=== PATIENT | female | born 1965 | race Caucasian/White ===

== ENCOUNTER 2019-02-09 18:42 | Emergency (ER) | payer MEDICAID ==
[~2019-02-09] VITALS: Ht 160 cm; Wt 64.0 kg
[2019-02-09 19:11] VITALS: BP 124/76
--- NOTE | 2019-02-09 19:34 | NUR ---
Pt resting in bed awaiting to be seen by
--- NOTE | 2019-02-09 20:55 | NUR ---
CALLED HOUSE SUP FOR POST OP SHOE
--- NOTE | 2019-02-09 21:26 | NUR ---
PT TO BE DISCHARGED TO HOME,X RAY DONE, BOOTS GIVEN TO STABILIZE R FOOT, PRESCRIPTION GIVEN FOR PAIN MEDS. ALL ORDERS COMPLEATED. PT VERABLIZED UNDERSTANDING OF ALL D/C TEACHING AND INSTUCTIONS.
== END 2019-02-09 23:35 | disposition home or self-care (01) ==
LOC: ER 18:47
DX: M79.671 Pain in right foot (principal); M19.90 Unspecified osteoarthritis, unspecified site; E78.00 Pure hypercholesterolemia, unspecified; Z90.89 Acquired absence of other organs
CPT/HCPCS: 73630-TC

== ENCOUNTER 2021-05-19 18:02 | Emergency (ER) | payer MEDICAID ==
[~2021-05-19] VITALS: Ht 162.6 cm; Wt 68.9 kg
[2021-05-19 18:19] VITALS: BP 127/73
[2021-05-19] MEDS ORDERED: NAPR-1009 PO (20:19)
--- NOTE | 2021-05-19 20:32 | NUR ---
Patient discharged to home in stable condition. RX Written and verbal after care instructions given. Patient verbalizes understanding of instruction. PT ambulatory with a steady gait
== END 2021-05-19 21:14 | disposition home or self-care (01) ==
LOC: ER 18:05
DX: M25.562 Pain in left knee (principal); M25.552 Pain in left hip; M54.9 Dorsalgia, unspecified
CPT/HCPCS: 72131-TC; 73502; 73564-TC

== ENCOUNTER 2021-09-15 16:04 | Emergency (ER) | payer MEDICAID ==
[~2021-09-15] VITALS: Ht 162.6 cm; Wt 70.3 kg
[~2021-09-15 16:04] MED LIST: NAPR-1009 PO
[2021-09-15 16:25] VITALS: BP 117/74
[2021-09-15] MEDS ORDERED: TRAM50TA2 PO (17:59)
[2021-09-15] MEDS ORDERED: DICL75TA5 PO (17:59)
== END 2021-09-15 23:00 | disposition home or self-care (01) ==
LOC: ER 16:25
DX: Z53.21 Procedure and treatment not carried out due to patient leaving prior to being seen by health care provider (principal); M25.531 Pain in right wrist; E78.00 Pure hypercholesterolemia, unspecified; Z90.89 Acquired absence of other organs

== ENCOUNTER 2021-09-15 16:12 | Emergency (ER) | payer MEDICAID ==
[~2021-09-15] VITALS: Ht 162.6 cm; Wt 70.3 kg
[2021-09-15 16:31] VITALS: BP 117/74
--- NOTE | 2021-09-15 16:42 | NUR ---
BIBS FOR C/O RIGHT WRIST PAIN 10/05 X 2 DAYS,DENIES ANY TRAUMA. WILL CONTINUE TO MONITOR THE PATIENT.
[2021-09-15] MEDS ORDERED: KETOROLAC TROMETHAMINE INJ 60 MG/2 ML VIAL IM ONE (17:30)
[2021-09-15] MEDS ORDERED: DICL75TA5 PO (17:59)
[2021-09-15] MEDS ORDERED: KETOROLAC TROMETHAMINE INJ 30 MG/ML VIAL ONE (17:59)
[2021-09-15] MEDS ORDERED: TRAM50TA2 PO (17:59)
--- NOTE | 2021-09-15 18:12 | NUR ---
Patient discharged to home in stable condition. Written and verbal after care instructions given. Patient verbalizes understanding of instruction.
== END 2021-09-15 18:13 | disposition home or self-care (01) ==
LOC: ER 16:23
DX: G89.29 Other chronic pain (principal); M25.562 Pain in left knee; M25.531 Pain in right wrist; M25.59 Pain in other specified joint; E78.5 Hyperlipidemia, unspecified; M19.90 Unspecified osteoarthritis, unspecified site; E78.00 Pure hypercholesterolemia, unspecified; Z90.89 Acquired absence of other organs; Z90.49 Acquired absence of other specified parts of digestive tract; Z79.1 Long term (current) use of non-steroidal anti-inflammatories (NSAID)
CPT/HCPCS: 29125; 73110; 96372; 99283; J1885

== ENCOUNTER 2023-10-27 18:07 | Emergency (ER) | payer MEDICAID ==
[~2023-10-27] VITALS: Ht 160 cm; Wt 72.6 kg
[~2023-10-27 18:07] MED LIST changes: +CEPH500T PO; +DICL75TA5 PO; +NAPR-1164 PO; +ONDA4TAB5 PO; +TRAM50TA2 PO
[2023-10-27] MEDS ORDERED: KETOROLAC TROMETHAMINE INJ 30 MG/ML VIAL ONE (21:06)
[2023-10-27] MEDS: KETOROLAC TROMETHAMINE INJ 30 MG/ML VIAL IM ONE (21:12)
[2023-10-27 21:20] VITALS: BP 128/80; TEMP 98.4; O2SAT 98
== END 2023-10-27 21:20 | disposition home or self-care (01) ==
LOC: ER 18:13
DX: M54.2 Cervicalgia (principal); M25.551 Pain in right hip; R51.9 Headache, unspecified; H93.11 Tinnitus, right ear; E78.00 Pure hypercholesterolemia, unspecified; Z90.49 Acquired absence of other specified parts of digestive tract; Z90.89 Acquired absence of other organs; Z88.8 Allergy status to other drugs, medicaments and biological substances; V43.52XA Car driver injured in collision with other type car in traffic accident, initial encounter; Y93.89 Activity, other specified; Y92.414 Local residential or business street as the place of occurrence of the external cause; Y99.8 Other external cause status
CPT/HCPCS: 99285; 72125; 96372; 73552; 73502; 70450; J1885

== ENCOUNTER 2024-02-06 10:22 | Inpatient (IN) | payer MEDICAID ==
[~2024-02-06] VITALS: Ht 162.6 cm; Wt 81.6 kg
[2024-02-06 10:58] LABS: BASOPHILS # (AUTO) 0.1 K/uL (0.0-0.2); BASOPHILS % (AUTO) 0.6 % (0.0-2.0); EOSINOPHILS % (AUTO) 0.2 % (0.0-6.0); HEMATOCRIT 40 % (33-45); HEMOGLOBIN 13.3 g/dL (11.5-14.8); LYMPHOCYTES % (AUTO) 9.2 % (20.0-44.0); MEAN CORPUSCULAR HEMOGLOBIN 30 PG (26.0-33.0); MEAN CORPUSCULAR HGB CONC 33 g/dl (31.0-36.0); MEAN CORPUSCULAR VOLUME 90 fL (82-100); MONOCYTES # (AUTO) 0.6 K/uL (0.1-1.30); MONOCYTES % (AUTO) 5.4 % (2.0-12.0); NEUTROPHILS # (AUTO) 9.5 K/uL (1.8-8.9); NEUTROPHILS % (AUTO) 84.6 % (43.0-81.0); PLATELET COUNT (AUTO) 282 K/uL (150-450); RED BLOOD CELL COUNT(AUTO) 4.47 MIL/uL (4.0-5.2); RED CELL DISTRIBUTION WIDTH 13.6 % (11.5-15.0); WHITE BLOOD COUNT (AUTO) 11.2 K/uL (4.3-11.0)
[2024-02-06] MEDS: IV NS 0.9% 1,000 ML BAG IV ONE (11:01)
[2024-02-06] MEDS ORDERED: ONDANSETRON HCL/PF 4 MG/2 ML VIAL ONE (11:04)
[2024-02-06] MEDS ORDERED: ACETAMINOPHEN ES 500 MG TABLET ONE (11:04)
[2024-02-06 11:11] LABS: INR 1.03 (0.91-1.10); PARTIAL THROMBOPLASTIN TIME 27.5 SEC (24.3-34.3); PROTHROMBIN TIME 10.9 SECS (9.2-11.1)
[2024-02-06 11:15] LABS: ALBUMIN 3.4 g/dL (3.4-5.0); BILIRUBIN,DIRECT 0.2 mg/dL (0.0-0.2); BILIRUBIN,TOTAL 0.8 mg/dL (0.2-1.0); CREATININE 0.8 mg/dL (0.6-1.3); POTASSIUM 3.9 mmol/L (3.5-5.1); TOTAL PROTEIN, SERUM 7.3 g/dL (6.4-8.2)
[2024-02-06 11:18] LABS: LACTIC ACID 1.1 mmol/L (0.4-2.0)
[2024-02-06] MEDS: ACETAMINOPHEN ES 500 MG TABLET PO ONE (11:18)
[2024-02-06] MEDS: ONDANSETRON HCL/PF 4 MG/2 ML VIAL IVP ONE (11:19)
[2024-02-06] MEDS ORDERED: MORPHINE SULFATE INJ 2 MG/ML DISP.SYRIN ONE (11:25)
[2024-02-06] MEDS: CEFEPIME 1 GM in IV D5W 50 ML IV ONE (11:26)
[2024-02-06] MEDS: MORPHINE SULFATE INJ 2 MG/ML DISP.SYRIN IV ONE (11:27)
[2024-02-06] MEDS ORDERED: IBUP-1955 PO (11:41)
[2024-02-06] MEDS ORDERED: ESCI20TA PO (11:41)
[2024-02-06] MEDS ORDERED: ALEN70TA80 PO (11:41)
[2024-02-06] MEDS ORDERED: [UNRECOGNIZED DRUG - REMARK] PO (11:44)
[2024-02-06] MEDS ORDERED: KETOROLAC TROMETHAMINE 15 MG/ML VIAL ONE (11:48)
[2024-02-06] MEDS: KETOROLAC TROMETHAMINE 15 MG/ML VIAL IV ONE (11:51)
[2024-02-06] MEDS: VANCOMYCIN 1 GM in IV D5W 250 ML IV ONE (11:58)
[2024-02-06 13:47] LABS: APPEARANCE,URINE CLEAR (CLEAR); BILIRUBIN,URINE NEGATIVE (NEGATIVE); BLOOD, URINE NEGATIVE Ery/uL (NEGATIVE); COLOR,URINE YELLOW (YELLOW); KETONES,URINE NEGATIVE (NEGATIVE); LEUKOCYTE ESTERASE ,URINE NEGATIVE (NEGATIVE); NITRITE, URINE NEGATIVE (NEGATIVE); PH,URINE 7.5 (5.0-8.0); PROTEIN,URINE NEGATIVE (NEGATIVE); UGLUCOSE NEGATIVE (NEGATIVE); UROBILINOGEN,URINE 0.2 EU/dL (0.2)
[2024-02-06 16:30] VITALS: BP 132/83; TEMP 97.7; O2SAT 98
[2024-02-06 20:37] VITALS: BP 125/77; TEMP 99.7; O2SAT 96
[2024-02-06] MEDS: IBUPROFEN 600 MG TABLET PO PRN (20:44)
[2024-02-06 22:01] VITALS: BP 102/65; TEMP 100.2; O2SAT 93
[2024-02-06] MEDS: MORPHINE SULFATE INJ 2 MG/ML DISP.SYRIN IV PRN (22:15)
[2024-02-06] MEDS ORDERED: ONDANSETRON HCL/PF 4 MG/2 ML VIAL IVP PRN (22:30)
[2024-02-06] MEDS ORDERED: Z GUARD REMEDY 4 OZ OINT TP PRN (22:30)
[2024-02-06] MEDS ORDERED: CEFEPIME 1 GM VIAL ONE (23:10)
[2024-02-06] MEDS: IV NS 0.9% 1,000 ML IV PRN (23:14)
[2024-02-06] MEDS: ACETAMINOPHEN 325 MG TABLET PO PRN (23:14)
[2024-02-06] MEDS: CEFEPIME 2 GM in IV D5W 100 ML IV SCH (23:22)
[2024-02-07] MEDS ORDERED: VANCOMYCIN 1 GM /D5W 250 ML PB IV ONE (00:08)
[2024-02-07] MEDS ORDERED: CEFEPIME 1 GM VIAL ONE (00:11)
[2024-02-07] MEDS: VANCOMYCIN 1 GM in IV D5W 250ml IV ONE (00:14)
[2024-02-07 00:18] VITALS: BP 112/65; TEMP 98.6; O2SAT 97
[2024-02-07 04:25] VITALS: BP 110/74; TEMP 97.9; O2SAT 97
[2024-02-07 06:46] LABS: BASOPHILS # (AUTO) 0.1 K/uL (0.0-0.2); BASOPHILS % (AUTO) 0.5 % (0.0-2.0); EOSINOPHILS # (AUTO) 0.3 K/uL (0.0-0.7); EOSINOPHILS % (AUTO) 3.3 % (0.0-6.0); HEMATOCRIT 41 % (33-45); HEMOGLOBIN 13.5 g/dL (11.5-14.8); LYMPHOCYTES # (AUTO) 1.9 K/uL (0.8-4.8); LYMPHOCYTES % (AUTO) 17.8 % (20.0-44.0); MEAN CORPUSCULAR HEMOGLOBIN 31 PG (26.0-33.0); MEAN CORPUSCULAR HGB CONC 33 g/dl (31.0-36.0); MEAN CORPUSCULAR VOLUME 93 fL (82-100); MONOCYTES # (AUTO) 0.9 K/uL (0.1-1.30); MONOCYTES % (AUTO) 8.5 % (2.0-12.0); NEUTROPHILS # (AUTO) 7.3 K/uL (1.8-8.9); NEUTROPHILS % (AUTO) 69.9 % (43.0-81.0); PLATELET COUNT (AUTO) 238 K/uL (150-450); RED BLOOD CELL COUNT(AUTO) 4.42 MIL/uL (4.0-5.2); RED CELL DISTRIBUTION WIDTH 13.9 % (11.5-15.0); WHITE BLOOD COUNT (AUTO) 10.4 K/uL (4.3-11.0)
[2024-02-07 07:05] LABS: CALCIUM, SERUM 8.9 mg/dL (8.5-10.1); CREATININE 0.9 mg/dL (0.6-1.3); MAGNESIUM 2.1 mg/dL (1.8-2.4); PHOSPHORUS 3.1 mg/dL (2.5-4.9); POTASSIUM 3.3 mmol/L (3.5-5.1)
[2024-02-07 07:30] VITALS: BP 110/72; TEMP 97.7; O2SAT 97
[2024-02-07] MEDS: PANTOPRAZOLE 40 MG TABLET.DR PO SCH (07:53)
[2024-02-07] MEDS: ESCITALOPRAM OXALATE (10 MG) 10 MG TABLET PO SCH (08:47)
[2024-02-07] MEDS: ENOXAPARIN SODIUM 40 MG/0.4 ML DISP.SYRIN SQ SCH (08:49)
[2024-02-07] MEDS: POTASSIUM CHLORIDE 20 MEQ TAB.PRT.SR PO ONE (08:57)
[2024-02-07] MEDS: VANCOMYCIN HCL 1.25 GM in IV D5W 250 ML IV SCH (14:28)
[2024-02-07 16:00] VITALS: BP 114/65; TEMP 98.2; O2SAT 95
[2024-02-07] MEDS: MORPHINE SULFATE INJ 2 MG/ML DISP.SYRIN IV PRN (16:19)
[2024-02-07] MEDS: OFLOXACIN OTIC SOLN 5 ML BOTTLE LEFT EAR SCH (18:40)
[2024-02-07 20:00] VITALS: BP 111/73; TEMP 98.4; O2SAT 97
[2024-02-08 07:29] LABS: CREATININE 0.9 mg/dL (0.6-1.3); POTASSIUM 3.9 mmol/L (3.5-5.1)
[2024-02-08 07:30] VITALS: BP 130/89; TEMP 97.5; O2SAT 97
[2024-02-08] MEDS ORDERED: predniSONE 50 MG TABLET PO SCH (09:00)
[2024-02-08] MEDS: VALACYCLOVIR HCL 500 MG TABLET PO SCH (09:58)
[2024-02-08] MEDS: predniSONE 20 MG TABLET PO SCH (09:59)
[2024-02-08] MEDS: VANCOMYCIN 1 GM in IV D5W 250ml IV SCH (13:17)
[2024-02-08 16:00] VITALS: BP 114/68; TEMP 97.7; O2SAT 96
[2024-02-08 22:54] VITALS: BP 119/69; TEMP 98.1; O2SAT 95
[2024-02-09 06:46] LABS: CALCIUM, SERUM 8.7 mg/dL (8.5-10.1); CREATININE 0.8 mg/dL (0.6-1.3); POTASSIUM 3.9 mmol/L (3.5-5.1)
[2024-02-09 08:00] VITALS: BP 126/75; TEMP 98.1; O2SAT 97
[2024-02-09] MEDS: predniSONE 20 MG TABLET PO SCH (08:28)
[2024-02-09 16:00] VITALS: BP 124/74; TEMP 97.9; O2SAT 97
[2024-02-09 20:00] VITALS: BP 126/64; TEMP 98.2; O2SAT 98
[2024-02-10 06:46] LABS: CREATININE 0.7 mg/dL (0.6-1.3); POTASSIUM 3.7 mmol/L (3.5-5.1)
[2024-02-10 08:30] VITALS: BP 125/86; TEMP 98.2; O2SAT 94
[2024-02-10] MEDS ORDERED: LEVO750T46 PO (11:29)
[2024-02-10] MEDS ORDERED: CIPR7.5D9 EACH EAR (11:29)
[2024-02-10] MEDS ORDERED: CEFEPIME 2 GM in IV D5W 100 ML IV SCH (21:00)
== END 2024-02-10 12:45 | disposition home or self-care (01) | DRG 115 ==
LOC: ER 10:29 → MED 17:10
PROVIDERS: ADMIT Internal Medicine; ATTEND Internal Medicine
DX: H60.22 Malignant otitis externa, left ear (principal); E87.1 Hypo-osmolality and hyponatremia; E11.9 Type 2 diabetes mellitus without complications; B02.9 Zoster without complications; E87.6 Hypokalemia; D72.829 Elevated white blood cell count, unspecified; M54.32 Sciatica, left side; Z20.822 Contact with and (suspected) exposure to COVID-19
CPT/HCPCS: 36415; 70450-TC; 71045-TC; 80048-TC; 80076-TC; 80202-TC; 83605-TC; 83735-TC; 84100-TC; 84484-TC; 85025-TC; 85730-TC; 86803; 87040-TC; 87081-TC; 87086-TC; 87806; A4223; G0378; J0692; J1650; J1885; J2270; J2405; J3370; J7030; J7040; J7050; J7060